=== PATIENT | female | born 2000 | race Caucasian/White ===

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

== ENCOUNTER → 2019-06-15 | Outpatient (CLI) | payer BC ==
[~2019-06-15] MED LIST changes: +ZOFRAN ODT4 MG SL
== END ==
LOC: COL.RAD 09:30
DX: K76.0 Fatty (change of) liver, not elsewhere classified (principal); R10.9 Unspecified abdominal pain; R11.0 Nausea; R19.7 Diarrhea, unspecified; R05 Cough
CPT/HCPCS: A9537; J2805

== ENCOUNTER 2019-06-18 01:47 | Emergency (ER) | payer BC ==
[~2019-06-18] VITALS: Ht 152.4 cm; Wt 84.1 kg
[~2019-06-18 01:47] MED LIST changes: -ZOFRAN ODT4 MG SL
[2019-06-18 01:51] VITALS: TEMP 97.2
[2019-06-18 02:19] LABS: BASO % 0.3 % (0.0-2.0); EOS % 0.3 % (0-4.0); GRAN # 8.7 (1.4-6.5); GRAN % 76.8 % (42.2-75.2); HEMOGLOBIN 14.4 g/dl (12.0-15.0); LYMPH # 2.1 (1.2-3.4); LYMPH % 18.2 % (20.0-51.0); MEAN CELL VOLUME 88 fl (80.0-95.0); MEAN CORPUSCULAR HEMOGLOBIN 29 pg (26.0-32.0); MEAN CORPUSCULAR HGB CONC 34 g/dl (33.0-37.0); MEAN PLATELET VOLUME 8.5 fl (7.4-10.4); MONO # 0.5 (0.1-0.6); MONO % 4.1 % (1.7-9.3); PLATELET COUNT 260 K/mm3 (130-400); RED BLOOD COUNT 4.91 M/mm3 (4.10-5.30); REDCELL DISTRIBUTION WIDTH-CV 12.9 % (11.5-14.5)
[2019-06-18 02:29] LABS: ALBUMIN 4.9 gm/dL (3.5-5.0); BILIRUBIN,TOTAL 0.9 mg/dL (0.0-1.0); CALCIUM 9.9 mg/dL (8.4-10.2); CREATININE, serum 0.86 (0.52-1.25); POTASSIUM 4.1 mmol/L (3.4-5.0); TOTAL PROTEIN 8.2 gm/dL (6.4-8.2)
[2019-06-18] MEDS ORDERED: ZOFRAN ODT4 MG SL (03:31)
[2019-06-18 03:41] VITALS: BP 105/63; PULSE 82
== END 2019-06-18 03:47 | disposition home or self-care (01) ==
LOC: COL.ER 01:47
PROVIDERS: Emergency Medicine
DX: R10.11 Right upper quadrant pain (principal)
CPT/HCPCS: J2405; J3010; J7030; Q9967

== ENCOUNTER → 2019-06-24 | Outpatient (CLI) | payer BC ==
[~2019-06-24] MED LIST changes: +ZOFRAN ODT4 MG SL
== END ==
LOC: COL.RAD 07:55
DX: K76.0 Fatty (change of) liver, not elsewhere classified (principal); R05 Cough; R19.7 Diarrhea, unspecified
CPT/HCPCS: A9585

== ENCOUNTER 2019-07-08 08:03 | Emergency (ER) | payer BC ==
[~2019-07-08] VITALS: Ht 152.4 cm; Wt 84.5 kg
[2019-07-08 08:12] VITALS: TEMP 98.1
[2019-07-08 08:39] LABS: COLLECTION METHOD CLEAN CATCH
[2019-07-08 08:54] LABS: MUCOUS Present /lpf; PH 5 (5-8); SQUAMOUS EPITHELIAL 0-2 /hpf; URINE APPEARANCE Clear; URINE BACTERIA None Seen /hpf; URINE BILIRUBIN Negative (NEGATIVE); URINE BLOOD Negative (NEGATIVE); URINE COLOR Yellow; URINE GLUCOSE Negative (NEGATIVE); URINE KETONE Negative (NEGATIVE); URINE LEUKOCYTE ESTERASE Negative (NEGATIVE); URINE NITRATE Negative (NEGATIVE); URINE PROTEIN(semi-quant) Negative (NEGATIVE); URINE RBC 0-2 /hpf; URINE UROBILINOGEN Negative (NEGATIVE)
[2019-07-08 09:00] LABS: BASO % 0.5 % (0.0-2.0); EOS # 0.1 (0.0-0.7); EOS % 0.9 % (0-4.0); GRAN # 3.4 (1.4-6.5); HEMATOCRIT 42.7 % (35.0-45.0); HEMOGLOBIN 14.1 g/dl (12.0-15.0); LYMPH # 1.8 (1.2-3.4); LYMPH % 32.5 % (20.0-51.0); MEAN CELL VOLUME 88 fl (80.0-95.0); MEAN CORPUSCULAR HEMOGLOBIN 29 pg (26.0-32.0); MEAN CORPUSCULAR HGB CONC 33 g/dl (33.0-37.0); MEAN PLATELET VOLUME 8.4 fl (7.4-10.4); MONO # 0.3 (0.1-0.6); MONO % 4.9 % (1.7-9.3); PLATELET COUNT 256 K/mm3 (130-400); RED BLOOD COUNT 4.85 M/mm3 (4.10-5.30); REDCELL DISTRIBUTION WIDTH-CV 12.7 % (11.5-14.5)
[2019-07-08 09:13] LABS: ALBUMIN 4.5 gm/dL (3.5-5.0); BILIRUBIN,TOTAL 0.9 mg/dL (0.0-1.0); C-REACTIVE PROTEIN 0.6 mg/dL (0.0-0.9); CALCIUM 9.8 mg/dL (8.4-10.2); CREATININE, serum 0.96 (0.52-1.25); POTASSIUM 4.1 mmol/L (3.4-5.0); TOTAL PROTEIN 7.6 gm/dL (6.4-8.2)
[2019-07-08] MEDS ORDERED: NORCO 325 MG-51 TAB PO (10:23)
[2019-07-08 10:31] VITALS: BP 126/58; PULSE 72
== END 2019-07-08 10:31 | disposition home or self-care (01) ==
LOC: COL.ER 08:03
PROVIDERS: Nurse Practitioner
DX: R10.11 Right upper quadrant pain (principal); F32.9 Major depressive disorder, single episode, unspecified; Z98.890 Other specified postprocedural states

== ENCOUNTER 2019-07-29 09:39 | Day surgery (SDC) | payer BC ==
[~2019-07-29] VITALS: Ht 152.4 cm; Wt 80.8 kg
[2019-07-29] MEDS ORDERED: PROMETHAZINE12.5 M5 PO (10:08)
[2019-07-29] MEDS ORDERED: SEASONIQUE1 TAB PO (10:13)
[2019-07-29] MEDS ORDERED: PROTONIX 40MG T40 MG PO (10:13)
[2019-07-29] MEDS ORDERED: LEXAPRO 5MG5 MG PO (10:13)
--- NOTE | 2019-07-29 10:13 | NUR ---
Patient unsure of her home medications. [facility]. Called and talked with the pharmacist and retreived her home medication list.
[2019-07-29 10:16] VITALS: BP 135/65; PULSE 74; TEMP 97.6
[2019-07-29 12:00] VITALS: BP 111/65; PULSE 64; TEMP 97.9
--- NOTE | 2019-07-29 12:00 | NUR ---
Pt to [facility] via cart from [employer]. Pt drowsy, but awakens easily. Pt ambulates to recliner with stand by assistance. Warm blanket provided. No visitors here with pt at this time. Muffin and water given per pt request. Will continue to monitor. Call light within reach.
[2019-07-29 12:15] VITALS: BP 88/61; PULSE 77
--- NOTE | 2019-07-29 12:15 | NUR ---
Pt continues to rest. Denies needs. 2nd muffin given per pt request. Call light within reach.
[2019-07-29 12:30] VITALS: BP 103/59; PULSE 60
--- NOTE | 2019-07-29 12:30 | NUR ---
into consult with pt. Call light within reach.
--- NOTE | 2019-07-29 12:45 | NUR ---
Discharge instructions reviewed. Pt voices understanding. IV site discontinued with all parts intact. Pt up to dress. Call light within reach.
--- NOTE | 2019-07-29 12:53 | NUR ---
Pt escorted to private car via wheel chair. Pt accompanied home by her mother.
== END 2019-07-29 12:54 | disposition home or self-care (01) ==
LOC: SDCO 09:39
DX: R19.7 Diarrhea, unspecified (principal); K76.0 Fatty (change of) liver, not elsewhere classified; F17.210 Nicotine dependence, cigarettes, uncomplicated; E66.9 Obesity, unspecified; Z68.35 Body mass index [BMI] 35.0-35.9, adult; Z83.79 Family history of other diseases of the digestive system
CPT/HCPCS: J2250; J3010; J7030

== ENCOUNTER 2019-08-30 06:48 | Day surgery (SDC) | payer BC ==
[2019-08-30] VITALS (7 sets, daily range): BP systolic 122–140; BP diastolic 60–73; PULSE 78–98; TEMP 98.2–99.6
[~2019-08-30] VITALS: Ht 157.5 cm; Wt 81.4 kg
[~2019-08-30 06:48] MED LIST changes: +LEXAPRO 5MG5 MG PO; +PROMETHAZINE12.5 M5 PO; +PROTONIX 40MG T40 MG PO; +SEASONIQUE1 TAB PO
[2019-08-30] MEDS ORDERED: DAYSEE PO (08:27)
[2019-08-30] MEDS ORDERED: ATARAX 25MG25 MG/TAB PO (08:29)
[2019-08-30] MEDS ORDERED: LEXAPRO20 MG PO (08:29)
[2019-08-30] MEDS ORDERED: PROTONIX 40MG T40 MG PO (08:31)
[2019-08-30] MEDS ORDERED: MOTRIN 600600 MG/TAB PO (10:21)
[2019-08-30] MEDS ORDERED: NORCO 325 MG-51 TAB PO (10:22)
--- NOTE | 2019-08-30 10:52 | NUR ---
Patient returns to room 8 per cart from PACU accompanied by Vianey GRIFFIN and is awake and alert. Taking ice chips. Warm blanket to abdomen for abdominal discomfort. Temp 98.5 and room air sats 95%. Oakes set dressing dry on the abdomen x4. Allowed to rest and siderails up x2. Call light in reach and family in the room.
--- NOTE | 2019-08-30 11:07 | NUR ---
Resting and sipping on water.
--- NOTE | 2019-08-30 11:22 | NUR ---
Room air sats 95%. Taking po fluids and eating few bites of muffin.
--- NOTE | 2019-08-30 11:37 | NUR ---
Sipping on hot chocolate. States that she is having gas pains and abdominal pains. Medicated with Idabel 5mg one tab. Denies nausea.
--- NOTE | 2019-08-30 11:45 | NUR ---
Assisted up to walk in the back hallway and tolerates well. Is attempting to void.
--- NOTE | 2019-08-30 12:13 | NUR ---
Returns to room after voiding. Wants to rest.
--- NOTE | 2019-08-30 13:09 | NUR ---
IV discontinued and patient dresses self.
--- NOTE | 2019-08-30 13:12 | NUR ---
Given dismissal instructions and voices understanding of these. Provided scripts for [place] and Motrin. Instructed to begin Motrin at 1500 today and take with food or milk every 6 hours.
--- NOTE | 2019-08-30 13:15 | NUR ---
Patient dismissed to home per private vehicle driven by family and dismissed with instructions in hand and script for [place]. Assisted into car by this RN.
[2019-08-31] MEDS ORDERED: ZOFRAN ODT4 MG PO (17:10)
[2019-08-31] MEDS ORDERED: PERCOCET 325 MG1 TA2 PO (17:10)
== END 2019-08-30 13:15 | disposition home or self-care (01) ==
LOC: SDCO 06:48
DX: K81.1 Chronic cholecystitis (principal); F17.210 Nicotine dependence, cigarettes, uncomplicated; Z79.899 Other long term (current) drug therapy; K21.9 Gastro-esophageal reflux disease without esophagitis; F41.9 Anxiety disorder, unspecified
CPT/HCPCS: J0690; J1100; J1170; J1885; J2175; J2405; J2704; J3010; J7120

== ENCOUNTER 2019-08-31 14:28 | Emergency (ER) | payer BC ==
[~2019-08-31] VITALS: Ht 157.5 cm; Wt 81.4 kg
[~2019-08-31 14:28] MED LIST changes: +ATARAX 25MG25 MG/TAB PO; +DAYSEE PO; +LEXAPRO20 MG PO; +MOTRIN 600600 MG/TAB PO
[2019-08-31 14:33] VITALS: TEMP 99.2
[2019-08-31 15:31] LABS: BASO % 0.1 % (0.0-2.0); GRAN # 7.6 (1.4-6.5); GRAN % 68.7 % (42.2-75.2); HEMATOCRIT 41.6 % (37.0-47.0); HEMOGLOBIN 13.9 g/dl (12.5-16.0); LYMPH # 2.8 (1.2-3.4); LYMPH % 25.9 % (20.0-51.0); MEAN CELL VOLUME 88 fl (80.0-100.0); MEAN CORPUSCULAR HEMOGLOBIN 29 pg (27.0-31.0); MEAN CORPUSCULAR HGB CONC 33 g/dl (33.0-37.0); MEAN PLATELET VOLUME 8.6 fl (7.4-10.4); MONO # 0.6 (0.1-0.6); MONO % 5.1 % (1.7-9.3); PLATELET COUNT 249 K/mm3 (130-400); RED BLOOD COUNT 4.72 M/mm3 (4.10-5.30); REDCELL DISTRIBUTION WIDTH-CV 12.9 % (11.5-14.5)
[2019-08-31 15:43] LABS: ALANINE AMINOTRANSFERASE 63 U/L (9-52); ALBUMIN 4.5 gm/dL (3.5-5.0); ALKALINE PHOSPHATASE 66 U/L (50-136); ANION GAP 11 mmol/L (7-16); AST,SGOT 66 U/L (15-37); BILIRUBIN,TOTAL 1.1 mg/dL (0.0-1.0); BLOOD UREA NITROGEN 10 mg/dL (7-17); CALCIUM 9.5 mg/dL (8.4-10.2); CARBON DIOXIDE 24 mmol/L (22-30); CHLORIDE 103 mmol/L (98-107); CREATININE, serum 0.84 (0.52-1.25); GLUCOSE 91 mg/dL (74-106); LIPASE 47 U/L (23-300); POTASSIUM 3.4 mmol/L (3.4-5.0); SODIUM 138 mmol/L (137-145); TOTAL PROTEIN 7.5 gm/dL (6.4-8.2)
[2019-08-31 15:59] LABS: COLLECTION METHOD CLEAN CATCH
[2019-08-31 16:07] LABS: C-REACTIVE PROTEIN < 0.5 mg/dL (0.0-0.9)
[2019-08-31 16:39] LABS: MUCOUS Present /lpf; PH 6 (5-8); URINE APPEARANCE Hazy; URINE BACTERIA Rare /hpf; URINE BILIRUBIN Negative (NEGATIVE); URINE BLOOD Negative (NEGATIVE); URINE COLOR Yellow; URINE GLUCOSE Negative (NEGATIVE); URINE KETONE Trace (NEGATIVE); URINE LEUKOCYTE ESTERASE Trace (NEGATIVE); URINE NITRATE Negative (NEGATIVE); URINE PROTEIN(semi-quant) Negative (NEGATIVE); URINE RBC 0-2 /hpf; URINE UROBILINOGEN Negative (NEGATIVE)
[2019-08-31] MEDS ORDERED: ZOFRAN ODT4 MG PO (17:10)
[2019-08-31] MEDS ORDERED: PERCOCET 325 MG1 TA2 PO (17:10)
[2019-08-31 17:13] VITALS: BP 128/78; PULSE 78
== END 2019-08-31 17:21 | disposition home or self-care (01) ==
LOC: COL.ER 14:28
PROVIDERS: Physician Assistant
DX: G89.18 Other acute postprocedural pain (principal); R10.11 Right upper quadrant pain
CPT/HCPCS: J1170; J2405; J7030; Q9967

== ENCOUNTER 2019-11-10 21:30 | Emergency (ER) | payer BC ==
[~2019-11-10] VITALS: Ht 154.9 cm; Wt 81.8 kg
[~2019-11-10 21:30] MED LIST changes: +PERCOCET 325 MG1 TA2 PO; +ZOFRAN ODT4 MG PO
[2019-11-10 21:33] VITALS: BP 114/65; TEMP 97.8
[2019-11-10 22:38] VITALS: PULSE 89
== END 2019-11-10 22:47 | disposition home or self-care (01) ==
LOC: COL.ER 21:30
DX: S62.604A Fracture of unspecified phalanx of right ring finger, initial encounter for closed fracture (principal); S62.602A Fracture of unspecified phalanx of right middle finger, initial encounter for closed fracture; F41.9 Anxiety disorder, unspecified; F32.9 Major depressive disorder, single episode, unspecified; F17.210 Nicotine dependence, cigarettes, uncomplicated; W20.8XXA Other cause of strike by thrown, projected or falling object, initial encounter; Y92.009 Unspecified place in unspecified non-institutional (private) residence as the place of occurrence of the external cause

== ENCOUNTER 2020-01-01 06:04 | Emergency (ER) | payer BC ==
[~2020-01-01] VITALS: Ht 154.9 cm; Wt 81.8 kg
[2020-01-01 06:08] VITALS: BP 140/96; TEMP 96.8
[2020-01-01] MEDS ORDERED: PEN-VEE K500 MG PO (07:00)
[2020-01-01] MEDS ORDERED: TYLENOL W/COD1 UDTAB PO (07:08)
[2020-01-01 07:17] VITALS: PULSE 99
== END 2020-01-01 07:18 | disposition home or self-care (01) ==
LOC: COL.ER 06:04
DX: R68.84 Jaw pain (principal); F41.9 Anxiety disorder, unspecified

== ENCOUNTER 2020-05-06 16:13 | Emergency (ER) | payer BC ==
[~2020-05-06] VITALS: Ht 154.9 cm; Wt 81.8 kg
[~2020-05-06 16:13] MED LIST changes: +PEN-VEE K500 MG PO; +TYLENOL W/COD1 UDTAB PO
[2020-05-06 16:43] LABS: BASO % 0.6 % (0.0-2.0); EOS # 0.1 (0.0-0.7); GRAN # 3.1 (1.4-6.5); GRAN % 57.9 % (42.2-75.2); HEMATOCRIT 44.8 % (37.0-47.0); HEMOGLOBIN 15.1 g/dl (12.5-16.0); LYMPH # 1.9 (1.2-3.4); LYMPH % 34.5 % (20.0-51.0); MEAN CELL VOLUME 87 fl (80.0-100.0); MEAN CORPUSCULAR HEMOGLOBIN 29 pg (27.0-31.0); MEAN CORPUSCULAR HGB CONC 34 g/dl (33.0-37.0); MEAN PLATELET VOLUME 8.4 fl (7.4-10.4); MONO # 0.3 (0.1-0.6); MONO % 4.8 % (1.7-9.3); PLATELET COUNT 287 K/mm3 (130-400); RED BLOOD COUNT 5.13 M/mm3 (4.10-5.30); REDCELL DISTRIBUTION WIDTH-CV 12.6 % (11.5-14.5)
[2020-05-06 16:53] LABS: ALBUMIN 4.9 gm/dL (3.5-5.0); BILIRUBIN,TOTAL 0.9 mg/dL (0.0-1.0); C-REACTIVE PROTEIN 0.6 mg/dL (0.0-0.9); CREATININE, serum 0.96 (0.52-1.25); TOTAL PROTEIN 8.3 gm/dL (6.4-8.2)
[2020-05-06 16:58] LABS: COLLECTION METHOD CLEAN CATCH
[2020-05-06 17:54] LABS: MUCOUS Present /lpf; PH 5 (5-8); SQUAMOUS EPITHELIAL 0-2 /hpf; URINE APPEARANCE Clear; URINE BACTERIA None Seen /hpf; URINE BILIRUBIN Negative (NEGATIVE); URINE BLOOD Negative (NEGATIVE); URINE COLOR Yellow; URINE GLUCOSE Negative (NEGATIVE); URINE KETONE Negative (NEGATIVE); URINE LEUKOCYTE ESTERASE Negative (NEGATIVE); URINE NITRATE Negative (NEGATIVE); URINE PROTEIN(semi-quant) Negative (NEGATIVE); URINE RBC 0-2 /hpf; URINE UROBILINOGEN Negative (NEGATIVE)
[2020-05-06 18:45] VITALS: BP 134/78; PULSE 84; TEMP 97.8
== END 2020-05-06 18:48 | disposition home or self-care (01) ==
LOC: COL.ER 16:13
PROVIDERS: Emergency Medicine
DX: R10.31 Right lower quadrant pain (principal); R11.10 Vomiting, unspecified; R19.7 Diarrhea, unspecified; F32.9 Major depressive disorder, single episode, unspecified; Z90.49 Acquired absence of other specified parts of digestive tract; Z90.721 Acquired absence of ovaries, unilateral; Z32.02 Encounter for pregnancy test, result negative
CPT/HCPCS: J1885; J2405; J3010; J7030; Q9967

== ENCOUNTER 2020-06-29 19:09 | Emergency (ER) | payer BC ==
[~2020-06-29] VITALS: Ht 157.5 cm; Wt 81.8 kg
[2020-06-29] MEDS ORDERED: NORCO 325 MG-51 TAB PO (20:02)
[2020-06-29 20:33] VITALS: BP 143/68; PULSE 81; TEMP 98.5
== END 2020-06-29 20:36 | disposition home or self-care (01) ==
LOC: COL.ER 19:09
DX: S62.635A Displaced fracture of distal phalanx of left ring finger, initial encounter for closed fracture (principal); S52.502A Unspecified fracture of the lower end of left radius, initial encounter for closed fracture; S61.451A Open bite of right hand, initial encounter; M27.3 Alveolitis of jaws; G89.18 Other acute postprocedural pain; R42 Dizziness and giddiness; R10.11 Right upper quadrant pain; F17.200 Nicotine dependence, unspecified, uncomplicated; F41.9 Anxiety disorder, unspecified; F32.9 Major depressive disorder, single episode, unspecified; W54.0XXA Bitten by dog, initial encounter; W18.30XA Fall on same level, unspecified, initial encounter

== ENCOUNTER 2020-10-21 14:23 | Emergency (ER) | payer BC ==
[~2020-10-21] VITALS: Ht 157.5 cm; Wt 86.4 kg
[2020-10-21 14:39] VITALS: BP 120/71; TEMP 98.5
[2020-10-21 14:54] LABS: COLLECTION METHOD CLEAN CATCH
[2020-10-21 15:02] LABS: MUCOUS Present /lpf; PH 5 (5-8); URINE APPEARANCE Hazy; URINE BACTERIA None Seen /hpf; URINE BILIRUBIN Negative (NEGATIVE); URINE BLOOD 1+ (NEGATIVE); URINE COLOR Yellow; URINE GLUCOSE Negative (NEGATIVE); URINE KETONE Negative (NEGATIVE); URINE LEUKOCYTE ESTERASE Negative (NEGATIVE); URINE NITRATE Negative (NEGATIVE); URINE PROTEIN(semi-quant) Negative (NEGATIVE); URINE RBC 0-2 /hpf; URINE UROBILINOGEN Negative (NEGATIVE)
[2020-10-21 16:05] LABS: BASO % 0.5 % (0.0-2.0); EOS % 0.2 % (0-4.0); GRAN # 3.9 (1.4-6.5); GRAN % 61.8 % (42.2-75.2); HEMATOCRIT 44.8 % (37.0-47.0); HEMOGLOBIN 14.9 g/dl (12.5-16.0); LYMPH # 2.1 (1.2-3.4); LYMPH % 32.3 % (20.0-51.0); MEAN CELL VOLUME 87 fl (80.0-100.0); MEAN CORPUSCULAR HEMOGLOBIN 29 pg (27.0-31.0); MEAN CORPUSCULAR HGB CONC 33 g/dl (33.0-37.0); MEAN PLATELET VOLUME 8.6 fl (7.4-10.4); MONO # 0.3 (0.1-0.6); PLATELET COUNT 225 K/mm3 (130-400); RED BLOOD COUNT 5.16 M/mm3 (4.10-5.30); REDCELL DISTRIBUTION WIDTH-CV 12.6 % (11.5-14.5)
[2020-10-21 16:19] LABS: ALANINE AMINOTRANSFERASE 58 U/L (4-34); ALBUMIN 4.7 gm/dL (3.5-5.0); ALKALINE PHOSPHATASE 72 U/L (50-136); ANION GAP 11 mmol/L (7-16); AST,SGOT 31 U/L (15-37); BILIRUBIN,TOTAL 1.1 mg/dL (0.0-1.0); BLOOD UREA NITROGEN 14 mg/dL (7-17); CALCIUM 9.6 mg/dL (8.4-10.2); CARBON DIOXIDE 22 mmol/L (22-30); CHLORIDE 107 mmol/L (98-107); CREATININE, serum 0.93 (0.52-1.25); GLUCOSE 93 mg/dL (74-106); POTASSIUM 4.2 mmol/L (3.4-5.0); SODIUM 140 mmol/L (137-145); TOTAL PROTEIN 8.3 gm/dL (6.4-8.2)
[2020-10-21 16:20] LABS: C-REACTIVE PROTEIN < 0.5 mg/dL (0.0-0.9)
[2020-10-21 16:55] VITALS: PULSE 56
[2021-01-15] MEDS ORDERED: ZOFRAN ODT4 MG PO (16:49)
== END 2020-10-21 16:59 | disposition home or self-care (01) ==
LOC: COL.ER 14:23
PROVIDERS: Emergency Medicine; Nurse Practitioner Primary Care
DX: R53.81 Other malaise (principal); R10.32 Left lower quadrant pain; R11.0 Nausea; F17.210 Nicotine dependence, cigarettes, uncomplicated; F32.9 Major depressive disorder, single episode, unspecified; F41.9 Anxiety disorder, unspecified; Z32.02 Encounter for pregnancy test, result negative; Z90.722 Acquired absence of ovaries, bilateral; Z90.49 Acquired absence of other specified parts of digestive tract
CPT/HCPCS: J2405; J7030

== ENCOUNTER → 2021-01-15 | Emergency (ER) | payer BC ==
[~2021-01-15] VITALS: Ht 157.5 cm; Wt 81.4 kg
[2021-01-15 13:03] VITALS: TEMP 97.5
[2021-01-15 14:05] LABS: BASO % 0.4 % (0.0-2.0); EOS % 0.5 % (0-4.0); GRAN # 5.2 (1.4-6.5); GRAN % 61.7 % (42.2-75.2); HEMATOCRIT 46.3 % (37.0-47.0); HEMOGLOBIN 15.8 g/dl (12.5-16.0); LYMPH # 2.5 (1.2-3.4); LYMPH % 29.9 % (20.0-51.0); MEAN CELL VOLUME 85 fl (80.0-100.0); MEAN CORPUSCULAR HEMOGLOBIN 29 pg (27.0-31.0); MEAN CORPUSCULAR HGB CONC 34 g/dl (33.0-37.0); MEAN PLATELET VOLUME 9.9 fl (7.4-10.4); MONO # 0.6 (0.1-0.6); MONO % 7.4 % (1.7-9.3); PLATELET COUNT 261 K/mm3 (130-400); RED BLOOD COUNT 5.43 M/mm3 (4.10-5.30); REDCELL DISTRIBUTION WIDTH-CV 13.2 % (11.5-14.5)
[2021-01-15 15:05] LABS: ALANINE AMINOTRANSFERASE 47 U/L (4-34); ALBUMIN 4.3 gm/dL (3.5-5.0); ALKALINE PHOSPHATASE 70 U/L (50-136); ANION GAP 9 mmol/L (7-16); AST,SGOT 33 U/L (15-37); BILIRUBIN,TOTAL 1.6 mg/dL (0.0-1.0); BLOOD UREA NITROGEN 8 mg/dL (7-17); CALCIUM 9.4 mg/dL (8.4-10.2); CARBON DIOXIDE 23 mmol/L (22-30); CHLORIDE 109 mmol/L (98-107); CREATININE, serum 0.85 (0.52-1.25); GLUCOSE 88 mg/dL (74-106); LIPASE 37 U/L (23-300); POTASSIUM 3.7 mmol/L (3.4-5.0); SODIUM 140 mmol/L (137-145); TOTAL PROTEIN 7.4 gm/dL (6.4-8.2)
[2021-01-15 15:06] LABS: C-REACTIVE PROTEIN < 0.5 mg/dL (0.0-0.9)
[2021-01-15 15:24] VITALS: BP 116/72; PULSE 72
== END ==
LOC: COL.ER 12:42
PROVIDERS: Family Medicine; Nurse Practitioner
DX: R10.12 Left upper quadrant pain (principal); R53.81 Other malaise; R11.2 Nausea with vomiting, unspecified; Z90.49 Acquired absence of other specified parts of digestive tract; Z87.891 Personal history of nicotine dependence; Z32.02 Encounter for pregnancy test, result negative
CPT/HCPCS: J2405; J7030